=== PATIENT | female | born 1985 ===

== ENCOUNTER 2018-03-05 06:45 | Inpatient (IN) | payer MEDICAID ==
[2018-03-05 06:57] VITALS: BMI 26.4
[2018-03-05] MEDS ORDERED: ceFAZolin 2 GM in Sodium Chloride 0.9% 100 ML IVPB ONE (07:20)
[2018-03-05] MEDS: Lactated Ringer's 1,000 ML IV SCH ×2 (07:30→14:40)
[2018-03-05] MEDS ORDERED: Sodium Citrate/Citric Acid 15 ml Sol PO ONE ×2 (07:46→08:15)
[2018-03-05] MEDS ORDERED: Sodium Citrate/Citric Acid 15 ml Sol ONE (08:01)
[2018-03-05] MEDS ORDERED: ceFAZolin IV 2 gm in Dextrose 0 GM/0 ML BAG IVPB ONE (08:01)
[2018-03-05] MEDS ORDERED: Oxytocin 10 Units/ml Inj ONE (08:05)
[2018-03-05] MEDS ORDERED: Oxytocin 20 units in LR 2,000 ML IV ONE (08:05)
[2018-03-05 08:08] LABS: BASO # 0.1 K/uL (0.0-0.2); BASO % 1.3 % (0.0-2.0); EOS # 0.1 K/uL (0.0-0.7); EOS % 0.9 % (0.0-4.0); HEMOGLOBIN 11.8 g/dL (11.0-16.0); LYMPH % 26.3 % (20.0-40.0); MEAN CELL VOLUME 96.8 fL (81.0-99.0); MEAN CORPUSCULAR HEMOGLOBIN 33.1 pg (27.0-31.0); MEAN CORPUSCULAR HGB CONC 34.2 g/dL (33.0-37.0); MEAN PLATELET VOLUME 10.1 fL (7.2-11.7); MONO # 0.5 K/uL (0.0-0.8); MONO % 6.3 % (0.0-10.0); NEUT % 65.2 % (50.0-75.0); NRBC % 0.2 % (0.0-2.0); RBC 3.56 Mil/uL (3.80-5.20); RED CELL DISTRIBUTION WIDTH 13.9 % (11.5-14.5); WHITE BLOOD COUNT 7.7 K/uL (4.8-10.8)
[2018-03-05 08:09] LABS: SQUAMOUS EPITHIAL 25 /hpf (0-5); URINE BACTERIA RARE (<OCC); URINE BILIRUBIN NEGATIVE (NEGATIVE); URINE BLOOD NEGATIVE (NEGATIVE); URINE CLARITY Hazy (Clear); URINE COLOR Yellow (YELLOW); URINE GLUCOSE (UA) NORMAL (Normal); URINE LEUKOCYTE ESTERASE 3+ Leu/uL (Negative); URINE PROTEIN 1+ mg/dL (NEGATIVE); URINE UROBILINOGEN NORMAL mg/dL (0.2-1.0)
[2018-03-05 08:22] LABS: BLOOD UREA NITROGEN 9 mg/dL (7-17); CALCIUM 8.5 mg/dl (8.6-10.4); GFR AFRICAN-AMERICAN > 60; GFR NON-AFRICAN AMERICAN > 60
--- NOTE | 2018-03-05 08:34 | OBADHP ---
Datetime: 03/05/2018 08:24 Admit Comment, IP Provider: PT admitted for repeat section and early labor. Pt has history of myomectomy 2012. She was advised to have repeat c/s btwn 36-37 weeks. EDC: March 19 2018. POBHx: C/S 2016 hx of myomectomy. female . #6.14oz. PGYNHx: no hx of abnormal pap or STDs PMHx: None PSHx: C/S Social: negative x 3. Meds: none ALL: NKDA FHx: Brother with prostate ca. A/P: Repeat C/S with BTL. 1) NPO 2) IVF 3) consent in chart. Pelvic Type - PN: Adequate Extremities - PN: Normal Abdomen - PN: Normal Back - PN: Normal Breast - PN: Normal Lungs - PN: Normal Heart - PN: Normal Thyroid - PN: Normal Neurologic - PN: Normal HEENT - PN: Normal General - PN: Normal FHR - Baseline A Provider: 150 Contraction Comments Provider: [id number] Gestation - Est Wks by US: 38.0 Vital Signs Provider: Reviewed IP Chief Complaint: Uterine contractions; Scheduled Section NICHD Variability Prov Fetus A: moderate NICHD Accel Fetus A IP Provider: [id number] FHR Category Provider Fetus A: Category I Dilatation, Provider: 0 Effacement, Provider: 0 Station, Provider: -3 Genitourinary Exam: Normal DTRs - PN: Normal EGA AdmitDate IP: 38.0 IP Adm Impression: Term, intrauterine IP Admit Plan: Admit to unit; Initiate Section protocol Signature: angie bhandari
[2018-03-05] MEDS ORDERED: Morphine 1 mg/ml preservative-free Inj(Duramorph) ONE (08:40)
[2018-03-05] MEDS ORDERED: Phenylephrine 10 mg/ml Inj ONE (08:41)
[2018-03-05] MEDS ORDERED: Oxytocin 10 Units/ml Inj IM ONE (10:14)
[2018-03-05] MEDS: Simethicone 80 mg Chewtab PO SCH ×3 (14:42→22:23)
--- NOTE | 2018-03-05 21:35 | OP ---
PROCEDURE DATE: 03/05/2018 PREOPERATIVE DIAGNOSES: 1. Intrauterine gestation at 38 weeks in early labor. 2. Repeat section and bilateral tubal ligation with a history of myomectomy. POSTOPERATIVE DIAGNOSES: 1. Intrauterine gestation at 39 weeks in early labor. 2. Repeat section with bilateral tubal ligation. 3. Delivery of a viable male infant. OPERATION PERFORMED: Repeat section with bilateral tubal ligation. SURGEON: Kylee Dawkins MD COMPUTER SYSTEMS ANALYST: Abdulaziz Flynn MD TYPE OF ANESTHESIA: Spinal. COMPLICATIONS: None. ESTIMATED BLOOD LOSS: 400 mL. DRAINS: Walker catheter to the bladder. SPECIMENS TO PATHOLOGY: None. OPERATIVE FINDINGS: A viable male with Apgars 9 and 9 with a weight of 7 pounds 5 ounces, three vessel cord with a normal anterior placenta. Amniotic fluid clear. Bilateral fallopian tubes, uterus and ovaries were normal. DESCRIPTION OF PROCEDURE: The patient was taken to the operating room and prepped and draped in the usual manner for a repeat . A Pfannenstiel incision was made in the lower abdomen. The keloid scar was removed. The Bovie was then used to dissect the preperitoneal fat until the fascia was reached. The fascia was dissected bilaterally with the assistance of a Bovie. The two Kochers were then placed on the anterior aspect of the fascia, and the rectus muscle was dissected off the fascia with the assistance of Granger scissors. A repeat procedure was performed on the posterior rectus fascia. The rectus muscles were then elevated with two Allis clamps. Scalpel was then used to enter into the abdominal cavity. Once the peritoneal cavity was entered, surgeon's hand was then used to stretch the muscles bilaterally. Peritoneal cavity was entered. The bladder blade was then placed on top of the bladder. Bladder flap was created with the assistance of Metzenbaum scissors. The scalpel was then used to create an incision in the lower uterine segment and stretched bilaterally with surgeon's hand. The amniotic sac was ruptured and noted to be clear. head was identified, elevated onto the abdomen and delivered with the assistance of fundal pressure. The cord was cut, clamped. The was bulb suctioned, and handed to the awaiting publishing director. The placenta was then removed manually. The uterus was cleaned with lap sponges. Uterus was exteriorized. There was noted to be the bowel that was adhered to the posterior fundus. The uterine incision was then reapproximated with 0 Vicryl in 2 layers. The attention was then directed towards the left and right fallopian tubes and the portion of the bilateral tubal ligation began. The right tube was grasped with two [place] clamps and the right fallopian tube was removed with the assistance of the EnSeal device. The right fallopian tube was sent to pathology. The same procedure was performed on the left tube. Left tube, there was noted to be adhesions but the remaining portion of the visible left fallopian tube was grasped with two Rick, and the portion of the tube was actually removed with the EnSeal device. The specimen was sent to pathology. Hemostasis was judged to be excellent. The posterior uterus was then irrigated with warm saline. All blood clots removed. The uterus was then placed back into the abdomen. There was noted to be some bleeding on the mucosal surfaces of the bladder flap and FloSeal was placed on top until hemostasis was judged to be excellent. The Surgicel was placed on the top of the uterine incision. The peritoneum was then reapproximated with 2-0 Vicryl. Muscle was reapproximated with 2-0 Vicryl. The fascia was reapproximated with 0 Vicryl. The preperitoneal fat was reapproximated with plain gut. The skin was reapproximated with Williams. All sponge, needle, and instrument counts were noted to be correct at the end of the procedure. Kylee Dawkins MD
[2018-03-06] MEDS: Hydrocodone/Acetaminophen 5 mg /300 mg Tab PO PRN ×2 (06:19→17:32)
[2018-03-06 08:17] LABS: BASO % 0.3 % (0.0-2.0); EOS % 0.3 % (0.0-4.0); HEMOGLOBIN 11.4 g/dL (11.0-16.0); LYMPH # 0.7 K/uL (1.0-4.3); LYMPH % 8.4 % (20.0-40.0); MEAN CELL VOLUME 95.4 fL (81.0-99.0); MEAN CORPUSCULAR HEMOGLOBIN 33.2 pg (27.0-31.0); MEAN CORPUSCULAR HGB CONC 34.8 g/dL (33.0-37.0); MEAN PLATELET VOLUME 9.2 fL (7.2-11.7); MONO # 0.4 K/uL (0.0-0.8); MONO % 4.1 % (0.0-10.0); NEUT # 7.7 K/uL (1.8-7.0); NEUT % 86.9 % (50.0-75.0); PLATELET COUNT 182 K/uL (130-400); RBC 3.43 Mil/uL (3.80-5.20); RED CELL DISTRIBUTION WIDTH 14.1 % (11.5-14.5); WHITE BLOOD COUNT 8.8 K/uL (4.8-10.8)
[2018-03-06 09:02] LABS: BANDS 2 % (0-2); HYPOCHROMIC SLIGHT; LYMPHOCYTE 6 % (20-40); MONOCYTE 5 % (0-10); NEUTROPHIL 87 % (50-75); PLATELET ESTIMATE NORMAL (NORMAL); TOTAL CELLS COUNTED 100
[2018-03-06] MEDS: Simethicone 80 mg Chewtab PO SCH ×4 (10:06→22:48)
[2018-03-06] MEDS: Prenatal Multivit/Folic Acid/Iron Tab PO SCH (10:06)
--- NOTE | 2018-03-06 11:04 | OBPPN ---
Datetime: 03/06/2018 11:02 PP Pain Prov: Within normal limits PP Nausea Prov: Denies PP Flatus Prov: No PP Abdomen/Uterus Prov: Normal PP Lochia Prov: Normal PP Extremities Prov: Normal PP Impression Prov: Normal progression PP Plan Prov: Continue present management PP Progress Note Prov: pt was seen at bed side, painm under control,no n/v, tolerating deit, voiding , min lochia pod#1 s/p c/s cont pain manag cont post op care encourage abulation
[2018-03-07] MEDS: Hydrocodone/Acetaminophen 5 mg /300 mg Tab PO PRN ×2 (00:43→06:54)
--- NOTE | 2018-03-07 08:31 | OBPPN ---
Datetime: 03/07/2018 08:26 PP Pain Prov: Within normal limits PP Nausea Prov: Denies PP Flatus Prov: Yes PP BM Prov: No PP Breasts Prov: Normal PP Heart Prov: Normal PP Lungs Prov: Normal PP Abdomen/Uterus Prov: Normal PP Lochia Prov: Normal PP Vulva/Perineum Prov: Normal PP CVA Tenderness Prov: Normal PP Extremities Prov: Normal PP C/S Incision Prov: Normal PP Progress Prov: Normal PP Impression Prov: Normal progression PP Plan Prov: Continue present management PP Progress Note Prov: Pt doing well. No complaints. Breast and bottle feeding. Tolerating PO diet. passing flatus Abdomen: incision: rebecca intact, incision C/D/I Ext: no edema A/P: Repeat C/S _ Bilateral Tubal Ligation. 1) VSS: afebrile 2) Bottle and breast feeding 3) Circumcision today. 4) Routine post op care. Vital Signs Provider PP: Reviewed Dr Signature: thony
[2018-03-07] MEDS: Prenatal Multivit/Folic Acid/Iron Tab PO SCH (09:57)
[2018-03-07] MEDS: Simethicone 80 mg Chewtab PO SCH ×4 (09:57→22:08)
[2018-03-08 04:14] VITALS: RESP 18
[2018-03-08] MEDS: Hydrocodone/Acetaminophen 5 mg /300 mg Tab PO PRN (08:19)
[2018-03-08] MEDS: Simethicone 80 mg Chewtab PO SCH (10:40)
[2018-03-08] MEDS: Prenatal Multivit/Folic Acid/Iron Tab PO SCH (10:41)
--- NOTE | 2018-03-08 16:56 | OBDCSUM ---
Datetime: 03/08/2018 16:39 Discharged to, Provider: Home Follow up at, Provider: [facility] [place] Disch Instr Activity: Normal activity Disch Instr Diet: Regular Discharge Instructions, Provider: Routine instructions given Discharge Diagnosis, Provider: Term Delivered Follow up in weeks, Provider: 1 week Disch Referrals: None Disch Activity Restrictions: No exercising; No lifting; No driving; No sexual activity; Nothing in v agina - [place], tampons, douche Discharge Comment, Provider: Post-Op date # 3 Discharge Home with instructions and Rx's Stable and Satisfactory condition and recovery Incision clean, dry and intact Bowel function recovered Breast Feeding without complications Rx for Vicodan and Ibuprofen given F/Up at Clinic in 7-10 days or prior if needed Contraception after Delivery: Tubal Ligation
[2018-03-08 22:47] VITALS: BP 111/65; PULSE 75; TEMP 97.5; O2SAT 98
== END 2018-03-08 18:45 | disposition home or self-care (01) | DRG 371 ==
LOC: C.4D 06:45 → C.4M 14:34
PROVIDERS: ADMIT Obstetrics & Gynecology; ATTEND Obstetrics & Gynecology
PROC: 10D00Z1 Extraction of Products of Conception, Low, Open Approach (ICD-10-PCS; principal; 2018-03-05)
PROC: 0UT70ZZ Resection of Bilateral Fallopian Tubes, Open Approach (ICD-10-PCS; 2018-03-05)
PROC: 0HB7XZZ Excision of Abdomen Skin, External Approach (ICD-10-PCS; 2018-03-05)
DX: O34.211 Maternal care for low transverse scar from previous cesarean delivery (principal); Z3A.38 38 weeks gestation of pregnancy; Z37.0 Single live birth; Z30.2 Encounter for sterilization